=== PATIENT | male | born 1960 | race Caucasian/White ===

== ENCOUNTER 2018-09-25 08:47 | Day surgery (SDC) | payer BC ==
[~2018-09-25] VITALS: Ht 177.8 cm; Wt 100.0 kg
[~2018-09-25 08:47] MED LIST: BENICAR HCT 251 TAB PO; GLUCOPHAGE500 MG/TAB PO; GRALISE300 MG PO; GRALISE600 MG PO
[2018-09-25 09:08] VITALS: BP 155/75; PULSE 55; TEMP 98.1
[2018-09-25] MEDS ORDERED: GLUCOPHAGE1000 MG PO (09:33)
[2018-09-25] MEDS ORDERED: BYSTOLIC20 MG PO (09:34)
[2018-09-25] MEDS ORDERED: NEURONTIN300 MG/CAP PO (09:34)
[2018-09-25] MEDS ORDERED: HCTZ 25MG TAB25 MG PO (09:35)
[2018-09-25] MEDS ORDERED: PRINIVIL40 MG PO (09:35)
[2018-09-25] MEDS ORDERED: NORVASC 5MG5 MG/TAB PO (09:36)
[2018-09-25] MEDS ORDERED: LIPITOR 10MG10 MG PO (09:36)
[2018-09-25] MEDS ORDERED: ULTRAM 50MG TAB50 MG PO (09:37)
[2018-09-25] MEDS ORDERED: ASPIRIN 81M81 MG/TA2 PO (09:37)
[2018-09-25] MEDS ORDERED: MULTIPLE VITAMI1 CAP PO (09:38)
[2018-09-25 10:05] VITALS: BP 128/73; PULSE 59; TEMP 98.1
[2018-09-25 10:15] VITALS: BP 120/75; PULSE 57
[2018-09-25 10:30] VITALS: BP 132/74; PULSE 52
[2018-09-25 10:45] VITALS: BP 135/74; PULSE 54
== END 2018-09-25 11:30 | disposition home or self-care (01) ==
LOC: SDCO 08:47
DX: Z12.11 Encounter for screening for malignant neoplasm of colon (principal); Z86.010 Personal history of colon polyps; Z79.899 Other long term (current) drug therapy; Z79.82 Long term (current) use of aspirin; E11.9 Type 2 diabetes mellitus without complications; Z79.84 Long term (current) use of oral hypoglycemic drugs; Z83.3 Family history of diabetes mellitus
CPT/HCPCS: OP; J2250; J3010; J7030